=== PATIENT | male | born 1980 | race Caucasian/White ===

== ENCOUNTER 2022-06-26 05:46 | Outpatient (CLI) | payer BC, OTHER ==
[~2022-06-26] VITALS: Ht 195.6 cm; Wt 103.0 kg
[2022-06-26] MEDS ORDERED: ALLO100T PO (08:41)
== END 2022-06-26 08:50 | disposition home or self-care (01) ==
LOC: PREOP 05:46
PROVIDERS: ATTEND Surgery
DX: Z01.818 Encounter for other preprocedural examination (principal)

== ENCOUNTER 2022-07-03 09:35 | Day surgery (SDC) | payer OTHER ==
[~2022-07-03] VITALS: Ht 195.6 cm; Wt 103.0 kg
[~2022-07-03 09:35] MED LIST: ALLO100T PO
[2022-07-03] MEDS ORDERED: LACTATED RINGERS 1,000 ML IV STA (09:42)
[2022-07-03] MEDS ORDERED: LIDOCAINE JELLY 2% 6 ML SYRINGE MM PRN (09:45)
[2022-07-03 10:00] VITALS: BP 141/83
--- NOTE | 2022-07-03 10:50 | Progress Note-Pre Operative ---
Pre-Operative Progress Note Date of Available H&P: Jul 03, 2022 Date H&P Reviewed: Jul 03, 2022 Time H&P Reviewed: 10:00 History & Physical: No changes noted Pre-Operative Diagnosis: rectal bleed MARJORIE SOTO MD Jul 03, 2022 10:50
[2022-07-03] MEDS ORDERED: PROPOFOL INJECTION 50 ML IV ONE ×2 (10:51→11:20)
--- NOTE | 2022-07-03 10:51 | Discharge Inst-Surgical ---
D/C Lap Instructions-BRITTANY Follow Up Activity as tolerated High Fiber Diet 25g or more per day Avoid Alcohol, Caffeine, Spicy [place] and Acid foods. Drink 64 fluid oz or more of fluids per day. Symptoms to Report: Fever over 101 degree F, Nausea/Vomiting If any problems/questions: Contact your physician or go to Emergency Room MARJORIE SOTO MD Jul 03, 2022 10:51
[2022-07-03] MEDS ORDERED: ONDANSETRON 4 MG (ZOFRAN) ORAL DISSOLVE TAB PO PRN (11:00)
[2022-07-03] MEDS ORDERED: ONDANSETRON 4 MG/2 ML (SDV) Z0FRAN IVP PRN (11:00)
[2022-07-03 11:35] VITALS: BP 122/70
[2022-07-03 11:40] VITALS: BP 110/59
--- NOTE | 2022-07-03 11:45 | Anesthesia-General Post-Op ---
MAC Patient Condition Mental Status/LOC: Same as Preop Cardiovascular: Satisfactory Nausea/Vomiting: Absent Respiratory: Satisfactory Pain: Controlled Complications: Absent Post Op Complications Complications None Follow Up Care/Instructions Patient Instructions None needed. Anesthesiology Discharge Order Discharge Order Patient is doing well, no complaints, stable vital signs, no apparent adverse anesthesia problems. No complications reported per nursing. KARLOS MURILLO CRNA Jul 03, 2022 11:45
[2022-07-03 12:05] VITALS: BP 126/86
--- NOTE | 2022-07-03 12:08 | Progress Note-Post Operative ---
Post-Operative Progess Note Surgeon (s)/Mine Exploration Engineer (s) Surgeon MARJORIE SOTO MD Mine Exploration Engineer: none Pre-Operative Diagnosis rectal bleed Post-Operative Diagnosis chronic stage 2 ext and int hemorrhoids, rectal a-v malformation. Procedure & Operative Findings Date of Procedure 07/03/22 Procedure Performed/Findings colonoscopy Anesthesia Type mac Estimated Blood Loss Estimated blood loss (mL): minimal Specimens/Packing Specimens Removed none MARJOREI SOTO MD Jul 03, 2022 12:08
--- NOTE | 2022-07-03 19:02 | OPERATIVE REPORT ---
DATE OF SERVICE: 07/03/2022 PREOPERATIVE DIAGNOSIS: Rectal bleed. 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 No active bleed. PROCEDURE: Colonoscopy. SURGEON: Marjorie Soto MD. ANESTHESIA: Monitored anesthesia care. ESTIMATED BLOOD LOSS: Minimal. 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 No active bleed. DISPOSITION: The patient tolerated the procedure well. INDICATION: The patient is a 41-year-old male who states that he has had some intermittent issues of rectal bleeding. He states that his bowel movements are pretty much normal. However, it is hard for him to describe the consistency of his stools. He does state that he usually does have a bowel movement daily. He states that approximately 1 to 2 times a month he will notice bright red blood per rectum. He does not report any abdominal pain and he states the bleeding stops on its own. He does not report any family history of colon cancer. DESCRIPTION OF PROCEDURE: The patient was brought to the endoscopy suite, laid in the left lateral decubitus position. After adequate IV pain and sedative medications and monitored anesthesia care, a digital rectal examination was performed. Chronic stage II external and internal hemorrhoids were identified, which were not actively edematous nor inflamed and no bleeding. Normal sphincter tone was felt and there were no palpable masses. Prostate gland was palpable and appeared normal. The endoscope was then intubated to the anus and rectum gently insufflated. At the rectum, the AV malformation was identified. This was not actively bleeding. Small to moderate in size. The endoscope was then advanced through the sigmoid colon where no diverticulosis identified. We then proceeded to remainder of the descending, transverse and ascending colon to the cecum, which were normal. No polyps or any neoplasms identified. The endoscope was then slowly withdrawn while taking a second look and suctioning of residual air with no additional findings. The patient tolerated the procedure well. We will recommend conservative medical management with a high fiber diet with addition of a fiber supplement, which should equal or exceed 30 grams daily to promote a soft consistency stool on a daily basis. With the softer stools and least amount of trauma to the anorectal region, this will likely cause decreased episodes of bleeding. If he does all of this and he continues to have episodes of rectal bleeding, the AV malformation may need addressed either by sclerotherapy in which we would refer to gastroenterology. Job ID: [id number] DocumentID: [id number] Dictated Date: 07/03/2022 12:22:14 Sign Installer Date: 07/03/2022 19:02:07 Dictated By: MARJORIE SOTO MD
== END 2022-07-03 12:13 | disposition home or self-care (01) ==
LOC: ENDO 09:35
PROVIDERS: ATTEND Surgery
DX: K64.1 Second degree hemorrhoids (principal); Q27.30 Arteriovenous malformation, site unspecified